=== PATIENT | female | born 1985 | race Caucasian/White ===

== ENCOUNTER 2016-10-04 09:04 | Emergency (ER) | payer OTHER ==
[~2016-10-04] VITALS: Ht 167.6 cm; Wt 86.2 kg
[2016-10-04 09:12] VITALS: BP 126/75
== END 2016-10-04 10:38 | disposition home or self-care (01) ==
LOC: ED 09:04
DX: M72.2 Plantar fascial fibromatosis (principal)
CPT/HCPCS: Q0092

== ENCOUNTER 2017-09-08 05:14 | Emergency (ER) | payer OTHER ==
[~2017-09-08] VITALS: Ht 167.6 cm; Wt 80.3 kg
[2017-09-08 05:22] VITALS: Ht 167.6 cm; Wt 80.3 kg
[2017-09-08 06:28] LABS: microscopic required? YES; urine erythrocyte NEGATIVE (NEGATIVE)
[2017-09-08 06:55] VITALS: BP 121/81
== END 2017-09-08 06:50 | disposition home or self-care (01) ==
LOC: ED 05:14
PROVIDERS: Emergency Medicine
DX: M62.830 Muscle spasm of back (principal); R10.31 Right lower quadrant pain; Z87.442 Personal history of urinary calculi; Z88.0 Allergy status to penicillin
CPT/HCPCS: 20552; J2001

== ENCOUNTER 2017-12-16 18:21 | Emergency (ER) | payer OTHER ==
[~2017-12-16] VITALS: Ht 167.6 cm; Wt 81.0 kg
[2017-12-16 18:41] VITALS: Ht 167.6 cm; Wt 81.0 kg
[2017-12-16 19:27] LABS: PLATELET COUNT 324 x10^3mcL (130-400); RED CELL DISTRIBUTION WIDTH 14.1 % (11.5-14.5)
[2017-12-16 19:30] LABS: UA SPECIFIC GRAVITY >=1.030 (1.005-1.035); microscopic required? YES; urine erythrocyte TRACE (NEGATIVE)
[2017-12-16 19:34] LABS: CALCIUM 7.9 mg/dL (8.5-10.1); CARBON DIOXIDE 21.9 mmol/L (21-32); CREATININE SERUM 1.3 mg/dL (0.6-1.0); POTASSIUM SERUM 4.1 mmol/L (3.5-5.1)
[2017-12-16 19:39] LABS: ALBUMIN 3.3 g/dL (3.4-5.0); BILIRUBIN TOTAL 0.5 mg/dL (0.20-1.00); TOTAL PROTEIN, SERUM 7.3 g/dL (6.4-8.2)
[2017-12-16 21:45] VITALS: BP 132/86
== END 2017-12-16 21:45 | disposition home or self-care (01) ==
LOC: ED 18:21
PROVIDERS: Emergency Medicine
DX: R10.32 Left lower quadrant pain (principal); R10.33 Periumbilical pain; Z88.0 Allergy status to penicillin
CPT/HCPCS: 83880; J1885; J2405; J7030